=== PATIENT | female | born 1950 | race Caucasian/White ===

== ENCOUNTER → 2017-01-05 | Outpatient (CLI) | payer MEDICARE, BC ==
[~2017-01-05] MED LIST: ASTEPRO205.5 MCG/ NS; ATENOLOL25 M1 PO; CELEBREX200 MG PO; HYDROCHLOROTHIA25 M1 PO; K-DUR 20MEQ TA20 MEQ PO; MAGNESIUM250 M1 PO; MEDROL 4MG. DOSE4 MG PO; MULTI-VITAMIN1 EACH PO; PREVACID 30MG C30 M1 PO; PROMETHAZINE D118 ML PO; SINGULAIR10 MG PO; TOPAMAX100 MG; TOPAMAX100 MG PO; VITAMIN D2000 I1 PO; VITAMIN D31000 IU PO; ZOCOR20 MG PO; ZYRTEC ALLERGY10 MG PO
== END ==
LOC: LAB 09:19
DX: B35.1 Tinea unguium (principal); B35.5 Tinea imbricata; D51.0 Vitamin B12 deficiency anemia due to intrinsic factor deficiency; Z79.899 Other long term (current) drug therapy